=== PATIENT | female | born 2000 | race Caucasian/White ===

== ENCOUNTER → 2024-08-12 | Emergency (ER) | payer MEDICAID ==
[~2024-08-12] VITALS: Ht 157.5 cm; Wt 54.5 kg
[~2024-08-12] MED LIST: CEPH-558 PO; SULF-261 PO
[2024-08-12 14:24] VITALS: BP 101/57; PULSE 86; RESP 18; TEMP 98.4; O2SAT 98
[2024-08-12] MEDS: LIDOCAINE 1% 10 ML VIAL SQ ONE (15:11)
== END | disposition home or self-care (01) ==
LOC: EMS 14:08
DX: L02.415 Cutaneous abscess of right lower limb (principal); Z79.2 Long term (current) use of antibiotics
CPT/HCPCS: 10060; 99282; J3490